=== PATIENT | female | born 1960 ===

== ENCOUNTER 2021-08-09 08:49 | Outpatient (CLI) | payer OTHER | END 2021-08-09 09:03 | disposition home or self-care (01) | LOC: LAB 08:49 | PROVIDERS: ATTEND Ophthalmology | DX: D68.8 Other specified coagulation defects (principal); H25.012 Cortical age-related cataract, left eye ==

== ENCOUNTER 2021-08-09 09:51 | Outpatient (CLI) | payer OTHER | END 2021-08-09 09:56 | disposition home or self-care (01) | LOC: RAD 09:51 | PROVIDERS: ATTEND Ophthalmology | DX: Z98.42 Cataract extraction status, left eye (principal); H25.012 Cortical age-related cataract, left eye ==